=== PATIENT | male | born 1965 | race Caucasian/White ===

== ENCOUNTER 2018-11-26 05:48 | Inpatient (IN) | payer BC, OTHER ==
[2018-11-19 12:36] VITALS: BMI 31.4
[2018-11-26] MEDS ORDERED: CEFAZOLIN 2 GM in DEXTROSE 5%-WATER - 50 ML IVPB ONE (06:47)
[2018-11-26] MEDS ORDERED: CELECOXIB 200 MG CAPSULE PO ONE (06:47)
[2018-11-26] MEDS ORDERED: oxyCODONE HCL 10 MG SUSTAINED ACTING TABLET PO ONE (06:47)
[2018-11-26] MEDS ORDERED: GABAPENTIN 300 MG CAPSULE (FP) PO ONE (06:47)
[2018-11-26] MEDS ORDERED: TRANEXAMIC ACID 1000 MG/10 ML VIAL IVPUSH ONE ×2 (06:47→11:17)
[2018-11-26] MEDS ORDERED: PANTOPRAZOLE 40 MG TABLET (FP) PO ONE (06:48)
--- NOTE | 2018-11-26 07:03 | HP ---
Admitting History and Physical - Admission Chief Complaint: left knee osteoarthritis x years History of Present Illness: 53-year-old male plant in regard to his left knee. Longstanding history of left knee osteoarthritis. Patient complains of pain, limited ROM, difficulty ambulating, and difficulty completing ADLs. Patient has failed conservative treatment options including PO medications, injections, exercise programs and activity modifications. At this point, patient would like to proceed with surgical intervention - left total knee arthroplasty, MAKOplasty. History Source: Patient - Past Medical History Endocrine: Yes: Hypothyroidism - Past Surgical History Additional Past Surgical History: See written history & physical. - Smoking History Smoking history: Never smoked - Alcohol/Substance Use Hx Alcohol Use: No Home Medications - Allergies Allergies/Adverse Reactions: Allergies Allergy/AdvReac Type Severity Reaction Status Date / Time No Known Allergies Allergy Verified 11/16/18 14:25 - Home Medications Home Medications: Ambulatory Orders Levothyroxine [Synthroid -] 125 mcg PO DAILY 11/16/18 Review of Systems - Review of Systems Musculoskeletal: reports: Crepitus (left knee), Decreased ROM (left knee), Joint Pain (left knee) Physical Examination Vital Signs: Vital Signs Temperature 97.9 F 11/26/18 06:37 Pulse Rate 60 11/26/18 06:37 Respiratory Rate 18 11/26/18 06:37 Blood Pressure 108/79 11/26/18 06:37 O2 Sat by Pulse Oximetry (%) Constitutional: Yes: Well Nourished Eyes: Yes: Conjunctiva Clear HENT: Yes: Atraumatic, Normocephalic Neck: Yes: Supple Cardiovascular: Yes: Regular Rate and Rhythm Respiratory: Yes: Regular Gastrointestinal: Yes: Soft ...Rectal Exam: Yes: Deferred Musculoskeletal: Yes: Joint Stiffness (left knee), Joint Swelling (left knee) Assessment/Plan 53-year-old male plant in regard to his left knee. Longstanding history of left knee osteoarthritis. Patient complains of pain, limited ROM, difficulty ambulating, and difficulty completing ADLs. Patient has failed conservative treatment options including PO medications, injections, exercise programs and activity modifications. At this point, patient would like to proceed with surgical intervention - left total knee arthroplasty. Pros, cons, risks, benefits and alternatives of a left total knee arthroplasty - MAKOplasty were discussed with patient at length. Patient confirms his understanding and consents to proceed with a left total knee arthroplasty, MAKOplasty.
[2018-11-26] MEDS ORDERED: BUPIVACAINE LIPOSOME/PF (EXPAREL) 266 MG/20 ML VIAL ONE (07:06)
[2018-11-26] MEDS ORDERED: SODIUM CHLORIDE 0.9% P/F 10 ML VIAL IJ ONE (07:09)
[2018-11-26] MEDS ORDERED: MIDAZOLAM HCL 2 MG/2 ML SINGLE DOSE VIAL ONE (07:25)
[2018-11-26] MEDS ORDERED: VANCOMYCIN 1,000 MG VIAL (RESTRICTED TO ID ONLY) ONE (07:31)
[2018-11-26] MEDS ORDERED: ceFAZolin SODIUM 1 GM VIAL ONE ×2 (07:31→08:53)
[2018-11-26] MEDS ORDERED: PROPOFOL 20 ML ONE ×4 (07:50→11:04)
[2018-11-26] MEDS ORDERED: BUPIVACAINE HCL/PF 0.5% (5MG/ML) 10 ML VIAL ONE (07:54)
[2018-11-26] MEDS ORDERED: LACTATED RINGERS SOLUTION 1,000 ML IV SCH ×2 (08:15→12:45)
[2018-11-26] MEDS ORDERED: oxyCODONE HCL 5 MG TABLET PO PRN (08:15)
[2018-11-26] MEDS ORDERED: ONDANSETRON 4 MG/2 ML VIAL IVPUSH PRN ×2 (08:15→12:34)
[2018-11-26] MEDS ORDERED: TRANEXAMIC ACID 1000 MG/10 ML VIAL ONE ×2 (08:47→11:16)
[2018-11-26] MEDS ORDERED: VANCOMYCIN 1,000 MG VIAL (RESTRICTED TO ID ONLY) IVPB ONE (11:18)
[2018-11-26] MEDS ORDERED: ACETAMINOPHEN INJECTION 100 ML IVPB ONE (12:06)
[2018-11-26] MEDS ORDERED: traMADol HCL 50 MG TABLET ONE (12:06)
[2018-11-26] MEDS ORDERED: KETOROLAC TROMETHAMINE 30 MG/1 ML VIAL ONE (12:06)
[2018-11-26] MEDS: KETOROLAC TROMETHAMINE 30 MG/1 ML VIAL IVPUSH SCH ×2 (12:15→18:42)
[2018-11-26] MEDS: ACETAMINOPHEN 1000 MG/100 ML VIAL (NON FORMULARY) IVPB ONE ×2 (12:20→13:40)
[2018-11-26] MEDS ORDERED: MAGNESIUM HYDROX 2400MG/30ML ORAL SUSPENSION 30 ML CUP PO PRN (12:34)
[2018-11-26] MEDS ORDERED: MAG HYDROX/AL HYDROX/SIMETH 30 ML UNIT-DOSE CUP PO PRN (12:34)
[2018-11-26] MEDS ORDERED: ACETAMINOPHEN 1000 MG/100 ML VIAL (NON FORMULARY) IVPB ONE (12:47)
[2018-11-26] MEDS ORDERED: traMADol HCL 50 MG TABLET PO SCH (13:00)
[2018-11-26] MEDS: oxyCODONE HCL 10 MG SUSTAINED ACTING TABLET PO SCH ×2 (13:40→21:33)
[2018-11-26] MEDS: CEFAZOLIN 2 GM/D5W 2 GM/50 ML ML IVPB SCH (17:31)
[2018-11-26] MEDS ORDERED: DEXAMETHASONE SOD PHOSPHATE 10 MG/1 ML VIAL IVPB ONE (20:00)
[2018-11-26] MEDS: oxyCODONE HCL 5 MG TABLET PO PRN ×2 (20:01→23:57)
[2018-11-26] MEDS: traMADol HCL 50 MG TABLET PO SCH (20:02)
[2018-11-26] MEDS: CELECOXIB 200 MG CAPSULE PO SCH (21:33)
[2018-11-26] MEDS: GABAPENTIN 300 MG CAPSULE (FP) PO SCH (21:33)
[2018-11-26] MEDS: ASCORBIC ACID 500 MG TABLET (FP) PO SCH (21:33)
[2018-11-26] MEDS: SENNOSIDES/DOCUSATE COMBO (SENNA PLUS) TABLET (UD) PO SCH (21:33)
[2018-11-27] MEDS: CEFAZOLIN 2 GM/D5W 2 GM/50 ML ML IVPB SCH (01:39)
[2018-11-27] MEDS: traMADol HCL 50 MG TABLET PO SCH ×4 (01:41→20:22)
[2018-11-27] MEDS: KETOROLAC TROMETHAMINE 30 MG/1 ML VIAL IVPUSH SCH ×2 (06:18)
[2018-11-27] MEDS: ASPIRIN 325 MG TABLET PO SCH (08:17)
[2018-11-27] MEDS: LEVOTHYROXINE NA 125 MCG TABLET (FP) PO SCH (08:18)
[2018-11-27 08:19] LABS: HEMOGLOBIN 13.7 GM/dl (11.7-16.9); MCH 31.4 pg (25.7-33.7); MCHC 33.5 g/dl (32.0-35.9); MEAN CELL VOLUME 93.7 fl (80-96); MEAN PLT VOLUME 8.1 fl (7.5-11.1); PLATELET COUNT 244 K/MM3 (134-434); RBC 4.38 M/mm3 (4.00-5.60); RDW 12.4 % (11.9-15.9); WHITE BLOOD COUNT 8.4 K/mm3 (4.0-10.8)
[2018-11-27 08:45] LABS: CALCIUM 9.1 mg/dl (8.5-10); CREATININE 1.1 mg/dl (0.55-1.3); POTASSIUM 5.4 mmol/L (3.5-5.1)
--- NOTE | 2018-11-27 08:54 | SPEC ---
DATE OF OPERATION: 11/26/2018 PREOPERATIVE DIAGNOSIS: Left knee osteoarthritis. POSTOPERATIVE DIAGNOSIS: Left knee osteoarthritis. PROCEDURE: Left total knee replacement with MAKOplasty robotic navigation. ATTENDING: Paris Joe MD HORIZONTAL RESAW OPERATOR: LIVIA Henry ANESTHESIA: Spinal plus sedation. ESTIMATED BLOOD LOSS: 100 mL COMPLICATIONS: None. DISPOSITION: The patient was transferred to the PACU in stable condition. IMPLANTS USED: [place] Tri[employer] cementless knee replacement system, size 5 femoral component, size 6 tibial component, an 11-mm posterior stabilized polyethylene component, 35-mm patellar component, again all cementless. INDICATIONS: This is a 53-year-old male who presented to the office complaining of severe left knee pain. He was seen and examined by Dr. Joe and diagnosed with severe left knee osteoarthritis. The patient was initially treated nonoperatively with injections, medications and physical therapy, but continued to have severe pain and ambulatory dysfunction. He was, therefore, indicated for a left total knee replacement. The risks, benefits and alternatives to the procedure were explained to the patient in great detail and he elected to proceed with the surgery. DESCRIPTION OF PROCEDURE: On the day of surgery, the patient was taken to the operating room and placed on the OR table. Spinal anesthesia was administered by the anesthesiologist. The patient was then positioned supine on the table and all bony prominences were padded. The knee was then prepped and draped in the usual sterile fashion and intravenous antibiotics were given for infection prophylaxis. A surgical time-out was then performed with the team, and the patients identity, procedure, side, availability of implants, and the administration of antibiotics was confirmed. With the knee flexed, a midline incision was made and carried down through the subcutaneous fat to the underlying retinaculum. A medial parapatellar arthrotomy was performed. This was followed by a subperiosteal dissection of the tissue off the proximal, medial tibia. A portion of fat pad was removed from under the patellar tendon, and a small portion of fat was excised off the distal supracondylar femur. Electrocautery and an [employer] bipolar sealing device were used to achieve hemostasis. The knee was then flexed further and the anterior horn of the lateral meniscus was released from the midline. Next, the anterior and posterior cruciate ligaments were transected. Grade 4 changes were noted diffusely throughout the knee. Femoral and tibial checkpoints were then placed in the appropriate location using a mallet. Two parallel bicortical self-drilling pins were placed in the tibial diaphysis after making stab incisions and bluntly dissecting down to bone. Two pins were then placed in the distal supracondylar femur. The Commutable navigation arrays were then attached to both the femoral and tibial pins and the lower extremity was then registered to the robotic navigation device using various joint movements, as well as inputting several dozen reference points. The knee was then taken through a full range of motion with a corrective force applied. Alignment in varus/valgus as well as flexion/extension and soft tissue balance was measured in various positions. The navigation device showed a numerical and graphic representation of the soft tissue balance. The components were repositioned virtually using the software until optimal soft tissue balance was achieved on screen. Once this was accomplished, the final plan was saved and sent to the robot. Self-retaining retractors were then placed at the joint line for exposure and protection of the collateral ligaments. The robot was brought into the sterile field and registered with the navigation device. The robotic arm with attached oscillating saw blade was then used to perform femoral and tibial bone cuts as per the saved software plan. The femoral box cut was made using the appropriately sized manual cutting guide. The knee was then irrigated. Trial components were placed and the knee was taken through a full range of motion to assess soft tissue balance and alignment. The range of motion was found to be excellent and the soft tissue balance was optimal and according to plan. The knee was then put into extension and the patella everted. The synovium around the patella was circumscribed with electrocautery. A caliper was used to measure the patellar thickness and a saw was then used to resect the patella at the chondro-osseous junction. The cut surface was then sized and drilled for the appropriate patellar button, with care taken to medialize it. A trial patella was then placed and the knee was again taken through a full range of motion. The knee was found to have both good balance and good patellar tracking. All of the components were removed except the tibial base plate. The appropriate instrumentation was used to drill and punch the proximal tibia for the keel of the final component. All bony surfaces were then cleaned with pulsatile lavage and dried. [employer] Triathlon knee replacement components were then impacted in place and found to have a stable press-fit. A trial polyethylene component was placed and the knee was again taken through a full range of motion to assess stability, balance, and patellar tracking. This was found to be optimal and the trial polyethylene was exchanged for the appropriately sized real implant. The wound was then thoroughly irrigated with normal saline. A 3-minute dilute Betadine lavage was performed. The knee was again irrigated using a pulsatile lavage device. A periarticular injection was used to locally infiltrate the capsular tissues surrounding the implant and prosthesis. Then No. 1 Polysorb and 0 V-Loc 180 barbed sutures were used to close the arthrotomy. Then No. 1 Polysorb and 2-0 V-Loc 90 sutures were used in the subcutaneous tissues. Then 4-0 undyed Vicryl and Dermabond skin adhesive was used to close the stab incisions made for the navigation pins. The skin was closed using both 3-0 V-Loc 90 suture in a running subcuticular fashion and Dermabond skin adhesive. Once this was completed a sterile Aquacel dressing and compressive Franky-wrap was applied. The patient was then awakened and taken to the PACU in stable condition. PARIS JOE M.D. [id number]
[2018-11-27] MEDS: oxyCODONE HCL 10 MG SUSTAINED ACTING TABLET PO SCH ×2 (10:00→21:22)
[2018-11-27] MEDS: CELECOXIB 200 MG CAPSULE PO SCH ×2 (10:00→21:22)
[2018-11-27] MEDS: SENNOSIDES/DOCUSATE COMBO (SENNA PLUS) TABLET (UD) PO SCH ×2 (10:00→21:21)
[2018-11-27] MEDS: GABAPENTIN 300 MG CAPSULE (FP) PO SCH ×2 (10:00→21:22)
[2018-11-27] MEDS: PANTOPRAZOLE 40 MG TABLET (FP) PO SCH (10:00)
[2018-11-27] MEDS: ASCORBIC ACID 500 MG TABLET (FP) PO SCH ×2 (10:00→21:22)
[2018-11-27] MEDS: MULTIVITAMINS (DAILY MVI) TABLET (FP) PO SCH (10:00)
--- NOTE | 2018-11-27 14:58 | PATH ---
Surgical Pathology Report Patient Name: ARIEL PAN Med. Rec. #: [id number] /Age/Gender: 1965 (Age: 53) / M Account: [id number] Location: [facility] MED-SURG Taken: 11/26/2018 Received: 11/26/2018 Reported: 11/27/2018 Physicians: Higinio Dotson M.D. Specimen(s) Received LEFT KNEE BONES Clinical History Left knee, osteoarthritis Final Diagnosis KNEE BONES, LEFT, TOTAL KNEE REPLACEMENT: DEGENERATIVE JOINT DISEASE. Electronically Signed Moriah Ponce M.D. Gross Description Received in formalin, labeled "left knee bones" are multiple portions of bone partially surfaced by cartilage having an aggregate of 11 x 8.5 x 3.8 cm. The articular/condylar surfaces appear granular and show areas of eburnation. Gluing Machine Operator tissue is submitted in one cassette after decalcification. AE/11/26/2018 ebram/11/26/2018
--- NOTE | 2018-11-27 15:34 | PN ---
Progress Note (short form) - Note Progress Note: ANESTHESIA POSTOP 53 YO male POD#1 s/p L TKA, spinal and PNB Patient sitting in chair. No complains of pain. Reports leg feels numb below knee. Tolerating PO. Able to walk and participate in PT. VSS, Afebrile Discussed with surgical team for follow up. Most likely numbness is from block. Continue current care. Encouraged IS and active participation in PT.
--- NOTE | 2018-11-27 20:10 | PN ---
Progress Note (short form) - Note Progress Note: PT seen and examined. Comfortable but c/o pretibial numbness and foot drop - not present immediately postop. Pt states it started at 2am. AVSS Selected Entries 11/27/18 14:00 Temperature 98.4 F Pulse Rate 95 H Respiratory 18 Rate Blood Pressure 138/71 O2 Sat by Pulse 96 Oximetry (%) Oxygen Delivery Room Air Method Laboratory Tests 11/27/18 11/27/18 07:58 07:58 WBC 8.4 Hgb 13.7 Hct 41.0 Plt Count 244 Sodium 135 L Potassium 5.4 H Chloride 101 Carbon Dioxide 23 Anion Gap 11 BUN 16 Creatinine 1.1 Est GFR (CKD-EPI)AfAm 87.13 Est GFR (CKD-EPI)NonAf 75.17 Random Glucose 224 H Calcium 9.1 Gen: NAD LLE: c/d/i, foot drop 0/5 EHL/DF 5/5 FHL/PF. Anterior numbness A/P POD#1 s/p L TKA Foot drop/numbness may be due to swelling / compressive dressing. Dressings removed and knee placed in flexion. May hold discharge until if foot drop not resolved Possible CT scan to look for hematoma tomorrow if foot drop not resolving Reglan ordered for c/o hiccups
[2018-11-27] MEDS ORDERED: METOCLOPRAMIDE HCL INJECTION 10 MG/2 ML VIAL IVPUSH PRN (21:12)
[2018-11-28] MEDS: traMADol HCL 50 MG TABLET PO SCH ×4 (02:00→20:05)
[2018-11-28] MEDS: LEVOTHYROXINE NA 125 MCG TABLET (FP) PO SCH (06:06)
[2018-11-28] MEDS: ASPIRIN 325 MG TABLET PO SCH (08:19)
[2018-11-28 08:52] LABS: HEMATOCRIT 34.3 % (35.4-49); HEMOGLOBIN 11.9 GM/dl (11.7-16.9); MCH 32.3 pg (25.7-33.7); MCHC 34.7 g/dl (32.0-35.9); MEAN CELL VOLUME 93.3 fl (80-96); MEAN PLT VOLUME 8.6 fl (7.5-11.1); PLATELET COUNT 199 K/MM3 (134-434); RBC 3.68 M/mm3 (4.00-5.60); RDW 12.2 % (11.9-15.9); WHITE BLOOD COUNT 10.8 K/mm3 (4.0-10.8)
[2018-11-28] MEDS: SENNOSIDES/DOCUSATE COMBO (SENNA PLUS) TABLET (UD) PO SCH ×2 (09:15→21:30)
[2018-11-28] MEDS: oxyCODONE HCL 10 MG SUSTAINED ACTING TABLET PO SCH ×2 (09:15→21:30)
[2018-11-28] MEDS: PANTOPRAZOLE 40 MG TABLET (FP) PO SCH (09:15)
[2018-11-28] MEDS: GABAPENTIN 300 MG CAPSULE (FP) PO SCH ×2 (09:15→21:30)
[2018-11-28] MEDS: MULTIVITAMINS (DAILY MVI) TABLET (FP) PO SCH (09:15)
[2018-11-28] MEDS: CELECOXIB 200 MG CAPSULE PO SCH ×2 (09:15→21:32)
[2018-11-28] MEDS: ASCORBIC ACID 500 MG TABLET (FP) PO SCH ×2 (09:15→21:32)
[2018-11-29] MEDS: traMADol HCL 50 MG TABLET PO SCH ×3 (02:03→13:02)
[2018-11-29] MEDS: oxyCODONE HCL 5 MG TABLET PO PRN (05:57)
[2018-11-29] MEDS: LEVOTHYROXINE NA 125 MCG TABLET (FP) PO SCH (05:59)
[2018-11-29] MEDS: ASPIRIN 325 MG TABLET PO SCH (08:35)
--- NOTE | 2018-11-29 08:43 | PN ---
Progress Note (short form) - Note Progress Note: Pt seen and examined last night. Foot drop resolved. Walked hundreds of feet AVSS Laboratory Tests 11/27/18 11/27/18 11/28/18 07:58 07:58 07:40 WBC 8.4 10.8 Hgb 13.7 11.9 Hct 41.0 34.3 L D Plt Count 244 199 Sodium 135 L Potassium 5.4 H Chloride 101 Carbon Dioxide 23 Anion Gap 11 BUN 16 Creatinine 1.1 Est GFR (CKD-EPI)AfAm 87.13 Est GFR (CKD-EPI)NonAf 75.17 Random Glucose 224 H Calcium 9.1 Gen: NAD LLE: c/d/i, NVID A/P s/p L TKA PT/OOB D/C home
--- NOTE | 2018-11-29 08:43 | DS ---
Physical Examination Vital Signs: Vital Signs Temperature 98.5 F 11/29/18 02:00 Pulse Rate 83 11/29/18 02:00 Respiratory Rate 18 11/29/18 08:31 Blood Pressure 124/72 11/29/18 02:00 O2 Sat by Pulse Oximetry (%) 96 11/29/18 08:31 Labs: CBC, BMP 11/28/18 07:40 11/27/18 07:58 Discharge Summary Reason For Visit: LEFT KNEE OSTEOARTHRITIS Current Active Problems Osteoarthritis of left knee (Acute) Procedures: Principal: left KARAN TKA Hospital Course: Admitted for elective surgery. Procedure performed without complications. Pt received postoperative antibiotic prophylaxis and DVT ppx. Ambulated with physical therapy. Stable for discharge home with outpatient followup. Condition: Stable - Instructions Diet, Activity, Other Instructions: Dr. Dotson - Knee Replacement Instructions Keep the Aquacel dressing on until removed by Dr. Dotson in 10-14 days - it is antibacterial and waterproof and you can shower with it on. Call the office for a follow-up appointment with Dr. Dotson in 10-14 days. Take one Aspirin 325mg daily for 6 weeks to prevent blood clots in your legs. Take one Pantoprazole 40mg daily for 6 weeks to protect against heartburn and ulcers. Take Cephalexin (antibiotic) 3x/day for 10 days to help prevent skin infection. Take Celebrex 200mg twice daily for 30 days to reduce swelling and inflammation. Take a multivitamin, stool softener, and extra Vitamin C supplement daily. For pain: *Mild pain (1-3/10): Take 1 Tramadol tablet every 4 hours as needed. Moderate pain (4-6/10): Take 1 Tramadol tablet and 1 Percocet tablet every 4 hours as needed. Severe pain (7-10/10): Take 1 Tramadol tablet and 2 Percocet tablets every 4 hours as needed. Activity: You can put as much weight on the operative leg as you want. Right after you get home, there will be a physical therapist coming to your house to help you walk around and bend/straighten your knee. After your follow-up appointment, you will be sent for more intensive outpatient physical therapy which will include machines and equipment that the home therapist cannot bring to your house. Always use a walker or cane for balance and to prevent falls. Expect to see swelling/bruising from the operative site all the way down to your toes. Wear the compression stocking on the operative side during the day to minimize how much swelling there is in your foot/ankle. Don't wear the stocking at night. You don't have to wear a stocking on the other side. Disposition: [facility]/HOME HEALTH CARE - Home Medications Comprehensive Discharge Medication List: Ambulatory Orders Levothyroxine [Synthroid -] 125 mcg PO DAILY 11/16/18 Ascorbic Acid [Vitamin C -] 500 mg PO BID tablet 11/29/18 Aspirin [ASA -] 325 mg PO DAILY@0800 tablet 11/29/18 Celecoxib [CeleBREX -] 200 mg PO BID #60 capsule 11/29/18 Cephalexin Monohydrate [Keflex -] 500 mg PO TID #30 capsule 11/29/18 Multivitamins [Multivit ([facility] Formul[facility])] 1 tab PO DAILY tab 11/29/18 Oxycodone HCl/Acetaminophen [Percocet 5-325 mg Tablet] 1 - 2 tab PO Q4H PRN #60 tablet MDD 10 11/29/18 Pantoprazole Sodium [Protonix -] 40 mg PO DAILY #40 tablet.ec 11/29/18 Sennosides/Docusate Sodium [Pericolace -] 2 tablet PO BID tablet 11/29/18 traMADol HCL [Ultram -] 50 mg PO Q4H PRN #42 tablet MDD 6 11/29/18
[2018-11-29] MEDS: GABAPENTIN 300 MG CAPSULE (FP) PO SCH (09:54)
[2018-11-29] MEDS: MULTIVITAMINS (DAILY MVI) TABLET (FP) PO SCH (09:54)
[2018-11-29] MEDS: PANTOPRAZOLE 40 MG TABLET (FP) PO SCH (09:54)
[2018-11-29] MEDS: CELECOXIB 200 MG CAPSULE PO SCH (09:54)
[2018-11-29] MEDS: SENNOSIDES/DOCUSATE COMBO (SENNA PLUS) TABLET (UD) PO SCH (09:54)
[2018-11-29] MEDS: ASCORBIC ACID 500 MG TABLET (FP) PO SCH (09:54)
[2018-11-29 15:10] VITALS: BP 100/63; PULSE 84; TEMP 98.5
== END 2018-11-29 16:50 | disposition home health service (06) | DRG 470 ==
LOC: FM/S 05:48
PROVIDERS: ADMIT Student in an Organized Health Care Education/Training Program; ATTEND Student in an Organized Health Care Education/Training Program
PROC: 8E0Y0CZ Robotic Assisted Procedure of Lower Extremity, Open Approach (ICD-10-PCS; 2018-11-26)
PROC: 0SRD0JA Replacement of Left Knee Joint with Synthetic Substitute, Uncemented, Open Approach (ICD-10-PCS; principal; 2018-11-26 09:15)
DX: M17.12 Unilateral primary osteoarthritis, left knee (principal); E03.9 Hypothyroidism, unspecified
CPT/HCPCS: 36415; 73560-TC-LT-FY; 80048; 85027; 88304-TC; 88311-TC; 94760; 97116-GP; 97163-GP; J0131; J1100